=== PATIENT | female | born 2000 | race Caucasian/White ===

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

== ENCOUNTER 2021-03-04 18:55 | Inpatient (IN) | payer BC ==
[~2021-03-04] VITALS: Ht 154.9 cm; Wt 54.8 kg
[~2021-03-04 18:55] MED LIST: SULF1TAB38 PO
[2021-03-04 19:54] LABS: BILIRUBIN,URINE NEGATIVE (NEGATIVE); CLARITY,URINE SL CLOUDY; COLOR,URINE YELLOW; GLUCOSE, URINE (UA) NEGATIVE (NEGATIVE); KETONES,URINE 2+ (NEGATIVE); LEUKOCYTE ESTERASE ,URINE 2+ (NEGATIVE); NITRITE,URINE NEGATIVE (NEGATIVE); PROTEIN,URINE TRACE (NEGATIVE)
[2021-03-04 19:57] LABS: BASOPHILS % (AUTO) 0 % (0-10); EOSINOPHILS # (AUTO) 0.1 10^3/uL (0.0-0.3); EOSINOPHILS % (AUTO) 1 % (0-10); HEMATOCRIT 47 % (35-52); HEMOGLOBIN 16.3 g/dL (11.5-16.0); LYMPHOCYTES # (AUTO) 1.8 10^3/uL (1.0-4.0); LYMPHOCYTES % (AUTO) 14 % (12-44); MEAN CORPUSCULAR HEMOGLOBIN 30 pg (25-34); MEAN CORPUSCULAR HGB CONC 34 g/dL (32-36); MEAN CORPUSCULAR VOLUME 87 fL (80-99); MEAN PLATELET VOLUME 9.4 fL (9.0-12.2); MONOCYTES # (AUTO) 0.7 10^3/uL (0.0-1.0); MONOCYTES % (AUTO) 6 % (0-12); NEUTROPHILS # (AUTO) 10.4 10^3/uL (1.8-7.8); NEUTROPHILS % (AUTO) 79 % (42-75); PLATELET COUNT 329 10^3/uL (130-400); WHITE BLOOD COUNT 13.2 10^3/uL (4.3-11.0)
[2021-03-04 20:05] LABS: WBC,URINE 50-100 /HPF
[2021-03-04 20:06] LABS: AMPHETAMINE SCREEN, URINE NEGATIVE (NEGATIVE); BACTERIA,URINE FEW /HPF; BARBITURATE SCREEN URINE NEGATIVE (NEGATIVE); BENZODIAZEPINES SCREEN URINE POSITIVE (NEGATIVE); CANNABINOID SCREEN, URINE NEGATIVE (NEGATIVE); COCAINE SCREEN URINE NEGATIVE (NEGATIVE); METHADONE STAT NEGATIVE (NEGATIVE); METHAMPHETAMINE SCREEN URINE S NEGATIVE (NEGATIVE); OPIATE SCREEN URINE NEGATIVE (NEGATIVE); OXYCODONE STAT NEGATIVE (NEGATIVE); PROPOXYPHENE STAT NEGATIVE (NEGATIVE); RENAL EPITHELIAL CELLS,URINE 0-2 /HPF; SQUAMOUS EPITHELIAL CELL,UR 0-2 /HPF; TRICYCLIC ANTIDEPRESSANTS SCRE NEGATIVE (NEGATIVE)
[2021-03-04 20:09] LABS: ALBUMIN 4.7 GM/DL (3.2-4.5); CHLORIDE 104 MMOL/L (98-107); POTASSIUM 3.2 MMOL/L (3.6-5.0); SODIUM 138 MMOL/L (135-145)
[2021-03-04 20:11] LABS: CALCIUM 9.4 MG/DL (8.5-10.1)
[2021-03-04 20:12] LABS: GLUCOSE 129 MG/DL (70-105); TOTAL PROTEIN 7.2 GM/DL (6.4-8.2)
[2021-03-04 20:13] LABS: CARBON DIOXIDE 22 MMOL/L (21-32)
[2021-03-04 20:14] LABS: BILIRUBIN,TOTAL 0.7 MG/DL (0.1-1.0)
[2021-03-04 20:16] LABS: ALKALINE PHOSPHATASE 93 U/L (40-136); CREATININE SERUM 0.75 MG/DL (0.60-1.30); GFR ESTIMATED 99
[2021-03-04 20:17] LABS: BUN/CREATININE RATIO 15
[2021-03-04 20:18] LABS: SALICYLATE < 5.0 MG/DL (5.0-20.0)
[2021-03-04 20:19] LABS: ALANINE AMINOTRANSFERASE 13 U/L (0-55)
[2021-03-04 20:25] LABS: ACETAMINOPHEN 60 UG/ML (10-30)
[2021-03-04] MEDS ORDERED: D5W IV ONE ×3 (20:30→23:30)
[2021-03-04] MEDS ORDERED: KCL 10 MEQ TAB (MICRO K) PO ONE (20:30)
[2021-03-04] MEDS ORDERED: NITROFURANTOIN 100 MG (MACROBID) CAPSULE PO ONE (20:30)
[2021-03-04] MEDS ORDERED: ACETYLCYSTEINE IV ONE ×3 (20:30→23:30)
[2021-03-04] MEDS ORDERED: ACETYLCYSTEINE (ACETADOTE) IV 6000 MG/30 ML VIAL ONE ×3 (20:40→23:49)
[2021-03-04] MEDS ORDERED: ONDANSETRON 4 MG/2 ML (SDV) Z0FRAN IVP ONE ×2 (21:30→22:00)
[2021-03-04 22:10] VITALS: BP 124/68
[2021-03-04] MEDS ORDERED: D5 1/2 NS W/KCL 20 MEQ/L 1,000 ML IV SCH (22:30)
[2021-03-04] MEDS ORDERED: ONDANSETRON 4 MG/2 ML (SDV) Z0FRAN IV PRN (22:30)
[2021-03-04] MEDS ORDERED: D5W 500 ML IV SOLUTION 500 ML IV ONE (23:49)
[2021-03-05] MEDS ORDERED: KCL 20 MEQ TAB (K-DUR) PO ONE (00:30)
[2021-03-05] MEDS: D5 1/2 NS 1000 ML IV SOLUTION 1,000 ML IV SCH ×4 (00:39→22:00)
[2021-03-05] MEDS ORDERED: D5W IV ONE ×2 (03:00→03:30)
[2021-03-05] MEDS ORDERED: ACETYLCYSTEINE IV ONE ×2 (03:00→03:30)
[2021-03-05 04:06] LABS: BASOPHILS % (AUTO) 0 % (0-10); EOSINOPHILS # (AUTO) 0.1 10^3/uL (0.0-0.3); EOSINOPHILS % (AUTO) 1 % (0-10); HEMATOCRIT 42 % (35-52); HEMOGLOBIN 14.7 g/dL (11.5-16.0); LYMPHOCYTES # (AUTO) 2.3 10^3/uL (1.0-4.0); LYMPHOCYTES % (AUTO) 22 % (12-44); MEAN CORPUSCULAR HEMOGLOBIN 31 pg (25-34); MEAN CORPUSCULAR HGB CONC 35 g/dL (32-36); MEAN CORPUSCULAR VOLUME 88 fL (80-99); MEAN PLATELET VOLUME 9.4 fL (9.0-12.2); MONOCYTES # (AUTO) 0.8 10^3/uL (0.0-1.0); MONOCYTES % (AUTO) 8 % (0-12); NEUTROPHILS # (AUTO) 7.3 10^3/uL (1.8-7.8); NEUTROPHILS % (AUTO) 69 % (42-75); PLATELET COUNT 277 10^3/uL (130-400); WHITE BLOOD COUNT 10.5 10^3/uL (4.3-11.0)
[2021-03-05 04:19] LABS: CHLORIDE 104 MMOL/L (98-107); SODIUM 137 MMOL/L (135-145)
[2021-03-05 04:21] LABS: AMMONIA 34 UMOL/L (11-32); CALCIUM 8.4 MG/DL (8.5-10.1)
[2021-03-05 04:22] LABS: GLUCOSE 151 MG/DL (70-105)
[2021-03-05 04:23] LABS: CARBON DIOXIDE 23 MMOL/L (21-32)
[2021-03-05 04:24] LABS: BILIRUBIN,TOTAL 0.6 MG/DL (0.1-1.0)
[2021-03-05 04:25] LABS: ALKALINE PHOSPHATASE 71 U/L (40-136); PHOSPHORUS 3.6 MG/DL (2.3-4.7)
[2021-03-05 04:26] LABS: CREATININE SERUM 0.69 MG/DL (0.60-1.30); GFR ESTIMATED 108
[2021-03-05 04:27] LABS: ACETAMINOPHEN < 10 UG/ML (10-30); BUN/CREATININE RATIO 10
[2021-03-05 04:29] LABS: ALANINE AMINOTRANSFERASE 11 U/L (0-55)
[2021-03-05 05:10] LABS: INR 1.1 (0.8-1.4); PROTHROMBIN TIME PATIENT 14.8 SEC (12.2-14.7)
--- NOTE | 2021-03-05 05:13 | ED Psychosocial ---
General Chief Complaint: Overdose Stated Complaint: INTENTIONAL DRUG OD,SUICIDE ATTEMPT,ACETOMENOPHEN Source: patient (GIVES VERY MINIMAL INFORMATION, AND ANSWERS "I DON'T KNOW" TO NEARLY ALL QUESTIONS), mother (GIVES SOME INFORMATION, BUT IS LIMITED HISTORIAN ABOUT EVENTS OF TODAY) History of Present Illness Date Seen by Provider: Mar 04, 2021 Time Seen by Provider: 19:30 Initial Comments PT ARRIVES VIA POV FROM HOME WITH MOTHER PT TOOK AN UNKNOWN AMOUNT OF TYLENOL SOMETIME TODAY INITIALLY WOULD ONLY SAY "I DON'T KNOW" TO WHAT SHE TOOK, HOW MANY SHE TOOK AND WHEN SHE TOOK THEM LATER, STATES SHE TOOK "6 OR 7" TYLENOL AT 1700 TODAY WHEN ASKED WHY SHE TOOK THEM, SHE STATES "I DON'T KNOW" WHEN ASKED IF SHE WANTED TO OR TO HARM HERSELF, SHE STATES "I DON'T KNOW" WHEN ASKED HOW LONG SHE HAS BEEN FEELING THIS WAY, SHE STATES "I DON'T KNOW" MOM STATES THAT SHE WAS PLANNING ON GOING TO [facility] IN [place] TODAY, BUT WHEN SHE WENT TO PICK PT UP, PT TOLD HER SHE HAD TAKEN PILLS, AND THAT SHE WAS TRYING TO HARM HERSELF, SO BROUGHT PT HERE INSTEAD PT IS ON FLUOXETINE, AND THIS DOSE WAS INCREASED LAST WEEK PT ALSO TAKES CONCERTA FOR ADHD PT HAS ATTEMPTED TO HARM HERSELF IN THE PAST, AND WAS ADMITTED TO [facility] AT AGE 16 DUE TO INTENTIONAL OVERDOSE. PT STATES SOMETIMES SHE CUTS HERSELF ON ARMS OR LEGS, BUT NOT RECENTLY PT IS BIOLOGICAL FEMALE, TAKING WEEKLY TESTOSTERONE INJECTIONS LMP--A FEW MONTHS AGO. NO CONTROL. PCP: DR. BISWAS Allergies and Home Medications Allergies Coded Allergies: No Known Drug Allergies (Unverified , 09/13/16) Patient Home Medication List Home Medication List Reviewed: Yes Sulfamethoxazole/Trimethoprim (Bactrim Ds Tablet) 1 Each Tablet, 1 EACH PO BID Prescribed by: MARGE ZAVALA on 09/13/16 1341 Review of Systems Constitutional: no symptoms reported EENTM: no symptoms reported Respiratory: no symptoms reported Cardiovascular: no symptoms reported Gastrointestinal: no symptoms reported Genitourinary: no symptoms reported Control/STD Prophylaxis: None Musculoskeletal: no symptoms reported Skin: no symptoms reported Psychiatric/Neurological: See HPI Past Teunbzn-Psvjoo-Mnnsjz Hx Patient Social History Tobacco Use?: No Use of E-Cig and/or Vaping dev: No Substance use?: Yes Substance type: Methamphetamine Substance frequency: Rarely Alcohol Use?: No Pt feels they are or have been: No Immunizations Up To Date Influenza Vaccine Up-to-Date: No; Not Current First/Initial COVID19 Vaccinat: Moderna 08/24 Second COVID19 Vaccination Lonnie: 08/24 Past Medical History Surgeries: No Respiratory: No Cardiac: No Neurological: No : No Genitourinary: No Gastrointestinal: No Musculoskeletal: No Endocrine: No HEENT: No Cancer: No Psychosocial: Yes ADD/ADHD, Anxiety, Suicide Attempts, Depression Physical Exam Vital Signs - First Documented 03/04/21 22:30 Temp 37.8 Pulse 91 Resp 18 B/P (MAP) 107/63 Pulse Ox 98 O2 Delivery Room Air Capillary Refill : Less Than 3 Seconds Height, Weight, BMI Height: 5'0" Weight: 100lbs. oz. 45.524131xo; 23.08 BMI Method:Stated General Appearance: WD/WN, no apparent distress, other (VERY FLAT AFFECT, AND GIVES MINIMAL ANSWERS TO QUESTIONS) HEENT: PERRL/EOMI Neck: normal inspection Respiratory: normal breath sounds, no respiratory distress, no accessory muscle use Cardiovascular: regular rate, rhythm, no murmur Gastrointestinal: non tender, soft Extremities: non-tender, normal inspection, normal capillary refill, other (NO EXTERNAL EVIDENCE OF TRAUMA NOTED ANYWHERE) Neurologic/Psychiatric: group chief operator II-XII nml as tested, no motor/sensory deficits, alert, oriented x 3 Appearance/Memory: appropriate appearance, impaired insight Behavior/Eye Contact: cooperative, normal speech, avoids eye contact Thoughts/Hallucinations: no apparent hallucination Skin: normal color, warm/dry Progress/Results/Core Measures Results/Orders Lab Results Laboratory Tests Test 03/04/21 19:35 03/04/21 19:48 03/04/21 20:07 03/05/21 00:16 Range/Units Urine Color YELLOW Urine Clarity SL CLOUDY Urine pH 7.0 5-9 Urine Specific [place] 1.015 L 1.016-1.022 Urine Protein TRACE H NEGATIVE Urine Glucose (UA) NEGATIVE NEGATIVE Urine Ketones 2+ H NEGATIVE Urine Nitrite NEGATIVE NEGATIVE Urine Bilirubin NEGATIVE NEGATIVE Urine Urobilinogen 0.2 < = 1.0 MG/DL Urine Leukocyte Esterase 2+ H NEGATIVE Urine RBC (Auto) NEGATIVE NEGATIVE Urine RBC NONE /HPF Urine WBC 50-100 H /HPF Urine Squamous Epithelial Cells 0-2 /HPF Urine Renal Epithelial Cells 0-2 /HPF Urine Crystals NONE /LPF Urine Bacteria FEW H /HPF Urine Casts NONE /LPF Urine Mucus NEGATIVE /LPF Urine Culture Indicated YES Urine Opiates Screen NEGATIVE NEGATIVE Urine Oxycodone Screen NEGATIVE NEGATIVE Urine Methadone Screen NEGATIVE NEGATIVE Urine Propoxyphene Screen NEGATIVE NEGATIVE Urine Barbiturates Screen NEGATIVE NEGATIVE Ur Tricyclic Antidepressants Screen NEGATIVE NEGATIVE Urine Phencyclidine Screen NEGATIVE NEGATIVE Urine Amphetamines Screen NEGATIVE NEGATIVE Urine Methamphetamines Screen NEGATIVE NEGATIVE Urine Benzodiazepines Screen POSITIVE H NEGATIVE Urine Cocaine Screen NEGATIVE NEGATIVE Urine Cannabinoids Screen NEGATIVE NEGATIVE White Blood Count 13.2 H 4.3-11.0 10^3/uL Red Blood Count 5.43 H 3.80-5.11 10^6/uL Hemoglobin 16.3 H 11.5-16.0 g/dL Hematocrit 47 35-52 % Mean Corpuscular Volume 87 80-99 fL Mean Corpuscular Hemoglobin 30 25-34 pg Mean Corpuscular Hemoglobin Concent 34 32-36 g/dL Red Cell Distribution Width 12.2 10.0-14.5 % Platelet Count 329 130-400 10^3/uL Mean Platelet Volume 9.4 9.0-12.2 fL Immature Granulocyte % (Auto) 0 % Neutrophils (%) (Auto) 79 H 42-75 % Lymphocytes (%) (Auto) 14 12-44 % Monocytes (%) (Auto) 6 0-12 % Eosinophils (%) (Auto) 1 0-10 % Basophils (%) (Auto) 0 0-10 % Neutrophils # (Auto) 10.4 H 1.8-7.8 10^3/uL Lymphocytes # (Auto) 1.8 1.0-4.0 10^3/uL Monocytes # (Auto) 0.7 0.0-1.0 10^3/uL Eosinophils # (Auto) 0.1 0.0-0.3 10^3/uL Basophils # (Auto) 0.0 0.0-0.1 10^3/uL Immature Granulocyte # (Auto) 0.0 0.0-0.1 10^3/uL Sodium Level 138 135-145 MMOL/L Potassium Level 3.2 L 3.6-5.0 MMOL/L Chloride Level 104 98-107 MMOL/L Carbon Dioxide Level 22 21-32 MMOL/L Anion Gap 12 5-14 MMOL/L Blood Urea Nitrogen 11 7-18 MG/DL Creatinine 0.75 0.60-1.30 MG/DL Estimat Glomerular Filtration Rate 99 BUN/Creatinine Ratio 15 Glucose Level 129 H 70-105 MG/DL Calcium Level 9.4 8.5-10.1 MG/DL Corrected Calcium 8.5-10.1 MG/DL Total Bilirubin 0.7 0.1-1.0 MG/DL Aspartate Amino Transf (AST/SGOT) 17 5-34 U/L Alanine Aminotransferase (ALT/SGPT) 13 0-55 U/L Alkaline Phosphatase 93 40-136 U/L Total Protein 7.2 6.4-8.2 GM/DL Albumin 4.7 H 3.2-4.5 GM/DL TSH [place]ove Testing 0.50 0.35-4.94 UIU/ML Serum Test, Qualitative NEGATIVE NEGATIVE Salicylates Level < 5.0 L 5.0-20.0 MG/DL Acetaminophen Level 60 *H 21 10-30 UG/ML Serum Alcohol < 10 <10 MG/DL SARS-CoV-2 RNA (RT-PCR) Not Detected Not Detecte Test 03/05/21 03:57 Range/Units White Blood Count 10.5 4.3-11.0 10^3/uL Red Blood Count 4.80 3.80-5.11 10^6/uL Hemoglobin 14.7 11.5-16.0 g/dL Hematocrit 42 35-52 % Mean Corpuscular Volume 88 80-99 fL Mean Corpuscular Hemoglobin 31 25-34 pg Mean Corpuscular Hemoglobin Concent 35 32-36 g/dL Red Cell Distribution Width 12.2 10.0-14.5 % Platelet Count 277 130-400 10^3/uL Mean Platelet Volume 9.4 9.0-12.2 fL Immature Granulocyte % (Auto) 0 % Neutrophils (%) (Auto) 69 42-75 % Lymphocytes (%) (Auto) 22 12-44 % Monocytes (%) (Auto) 8 0-12 % Eosinophils (%) (Auto) 1 0-10 % Basophils (%) (Auto) 0 0-10 % Neutrophils # (Auto) 7.3 1.8-7.8 10^3/uL Lymphocytes # (Auto) 2.3 1.0-4.0 10^3/uL Monocytes # (Auto) 0.8 0.0-1.0 10^3/uL Eosinophils # (Auto) 0.1 0.0-0.3 10^3/uL Basophils # (Auto) 0.0 0.0-0.1 10^3/uL Immature Granulocyte # (Auto) 0.0 0.0-0.1 10^3/uL Sodium Level 137 135-145 MMOL/L Potassium Level 4.0 3.6-5.0 MMOL/L Chloride Level 104 98-107 MMOL/L Carbon Dioxide Level 23 21-32 MMOL/L Anion Gap 10 5-14 MMOL/L Blood Urea Nitrogen 7 7-18 MG/DL Creatinine 0.69 0.60-1.30 MG/DL Estimat Glomerular Filtration Rate 108 BUN/Creatinine Ratio 10 Glucose Level 151 H 70-105 MG/DL Calcium Level 8.4 L 8.5-10.1 MG/DL Corrected Calcium 8.4 L 8.5-10.1 MG/DL Phosphorus Level 3.6 2.3-4.7 MG/DL Magnesium Level 2.0 1.6-2.4 MG/DL Total Bilirubin 0.6 0.1-1.0 MG/DL Aspartate Amino Transf (AST/SGOT) 12 5-34 U/L Alanine Aminotransferase (ALT/SGPT) 11 0-55 U/L Alkaline Phosphatase 71 40-136 U/L Ammonia 34 H 11-32 UMOL/L Total Protein 6.0 L 6.4-8.2 GM/DL Albumin 4.0 3.2-4.5 GM/DL Acetaminophen Level < 10 L 10-30 UG/ML My Orders Orders - CELIA PENNINGTON DO Urinalysis (03/04/21 19:29) Thyroid Analyzer (03/04/21 19:29) Drug Screen Stat (Urine) (03/04/21 19:29) Cbc With Automated Diff (03/04/21 19:29) Comprehensive Metabolic Panel (03/04/21 19:29) Alcohol (03/04/21 19:29) Acetaminophen (03/04/21 19:29) Salicylate (03/04/21 19:29) Ekg Tracing (03/04/21 19:29) Monitor-Rhythm Ecg Trace Only (03/04/21 19:29) Hcg,Qualitative Serum (10/30/21 19:29) Covid 19 Inhouse Test (03/04/21 19:29) Urine Culture (03/04/21 19:35) Potassium Chloride (Tablet) (Klor Con Ta (03/04/21 20:30) Nitrofurantoin Capsule,Macro (Macrobid C (03/04/21 20:30) Acetylcysteine Injection (Acetadote Inje (03/04/21 20:30) Acetylcysteine Injection (Acetadote Inje (03/04/21 20:40) Ondansetron Injection (Zofran Injectio (03/04/21 21:30) Ondansetron Injection (Zofran Injectio (03/04/21 22:00) Medications Given in ED Current Medications Medications Dose Ordered Sig/Tavon Route Start Time Stop Time Status Last Admin Dose Admin Acetylcysteine 8900 mg/Dextrose/ Water 294.5 ml @ 294.5 mls/ hr ONCE ONCE IV 03/04/21 20:30 03/04/21 21:29 DC 03/04/21 20:49 294.5 MLS/HR Nitrofurantoin Macrocrystals 100 mg ONCE ONCE PO 03/04/21 20:30 03/04/21 20:31 DC 03/04/21 20:28 100 MG Potassium Chloride 20 meq ONCE ONCE PO 03/04/21 20:30 03/04/21 20:31 DC 03/04/21 20:28 20 MEQ Vital Signs/I&O 03/04/21 03/04/21 03/04/21 03/04/21 22:30 22:30 22:30 23:00 Temp 37.8 Pulse 91 98 Resp 18 19 B/P (MAP) 107/63 117/65 Pulse Ox 98 98 93 O2 Delivery Room Air Room Air Room Air 03/05/21 03/05/21 03/05/21 03/05/21 00:00 01:00 01:00 02:00 Pulse 109 89 86 89 Resp 19 19 17 B/P (MAP) 115/63 107/56 117/66 Pulse Ox 98 97 96 O2 Delivery Room Air Room Air Room Air 03/05/21 03/05/21 04:00 04:00 Temp 37.1 Pulse Ox 96 O2 Delivery Room Air Blood Pressure Mean: 83 Progress Progress Note : Progress Note ACETADOTE STARTED IN ER NO DETERIORATION IN PT'S CONDITION DURING ER STAY Initial ECG Impression Date: Mar 04, 2021 Initial ECG Impression Time: 19:41 Initial ECG Rate: 94 Initial ECG Rhythm: Normal Sinus Departure Communication (Admissions) 2029--SPOKE WITH DR. GOODWIN, FASHION SHOW DIRECTOR FOR DR. BISWAS. ACCEPTS PT FOR ADMIT. ORDERS NOTED --WILL START ACETADOTE 2032--REPORT TO E-ICU PHYSICIAN. ALSO AGREES WITH ACETADOTE. Impression Primary Impression: INTENTIONAL DRUG OVERDOSE Additional Impressions: SUICIDE ATTEMPT Acetaminophen toxicity UTI (urinary tract infection) Disposition: ADMITTED INPATIENT Condition: Stable Admissions Decision to Admit Reason: Admit from ER (General) Decision to Admit/Date: Mar 04, 2021 Time/Decision to Admit Time: 20:30 Departure-Patient Inst. Referrals: MONSERRAT BISWAS DO (PCP) Primary Care Physician Patient Instructions: ALCOHOL AND SUBSTANCE ABUSE CELIA PENNINGTON DO Mar 05, 2021 05:13
[2021-03-05] MEDS ORDERED: KCL 20 MEQ TAB (K-DUR) PO SCH (06:00)
[2021-03-05] MEDS ORDERED: MAGNESIUM 1 GM/100 ML IVPB 100 ML IV SCH (06:00)
[2021-03-05] MEDS ORDERED: POTASSIUM CL 10MEQ/50ML IVPB 50 ML IV SCH (06:00)
[2021-03-05] MEDS ORDERED: FLU QUADRIvalent (3YOA+) 60 mcg/0.5 ml 2021-22(AFLURIA) IM ONE (07:15)
[2021-03-05] MEDS: NITROFURANTOIN 100 MG (MACROBID) CAPSULE PO SCH ×2 (08:40→20:53)
--- NOTE | 2021-03-05 09:20 | History & Physical ---
History of Present Illness History of Present Illness Reason for visit/HPI PT IS A 20 Y/O BIOLOGICAL FEMALE WHO IDENTIFIES A MALE. THIS PATIENT IS A CLINIC PATIENT OF DR. BISWAS FOR WHOM I AM FLOW NURSE TODAY. THE PATIENT WAS BROUGHT TO THE EMERGENCY DEPARTMENT AFTER A PURPOSEFUL OVERDOSE OF ACETAMINOPHEN. THE PATIENT REPORTED TO THE STAFF THAT ONLY 6 OR 7 TYLENOL PILLS WERE INGESTED, HOWEVER THE PATIENT HAD A HIGH ACETAMINOPHEN LEVEL ON LABS DRAWN IN ER. DUE TO THE NATURE OF SELF-INJURY - PT WAS ADMITTED TO THE ICU FOR CLOSE MONITORING. Date of Admission Mar 04, 2021 at 20:30 Date Seen by a Provider: Mar 05, 2021 Time Seen by a Provider: 09:00 Attending Physician MONSERRAT BISWAS DO Admitting Physician GILL GOODWIN MD Consult EICU/CRITICAL CARE Allergies and Home Medications Allergies Coded Allergies: No Known Drug Allergies (Unverified , 09/13/16) Patient Home Medication List Home Medication List Reviewed: No Sulfamethoxazole/Trimethoprim (Bactrim Ds Tablet) 1 Each Tablet, 1 EACH PO BID Prescribed by: MARGE ZAVALA on 09/13/16 1341 Past Nskgjaw-Rdscdf-Azbnno Hx Patient Social History Marrital Status: single Number of Children: 0 Number of living children: 0 Employed/Student: part-time employed, student, full-time Tobacco Use?: No Smoking Status: Never a Smoker Use of E-Cig and/or Vaping dev: No Substance use?: Yes Substance type: Methamphetamine Substance frequency: Rarely Alcohol Use?: No Pt feels they are or have been: No Immunizations Up To Date First/Initial COVID19 Vaccinat: Moderna 08/24 Second COVID19 Vaccination Lonnie: Moderna 08/24 Current Status status: No Advance Directives: No Communicates: Verbally Primary Language: Bengali Sensory deficits: Vision impairment Implanted or Applied Medical D: None Past Medical History Currently Using CPAP: No Currently Using BIPAP: No Sexually Transmitted Disease: No HIV/AIDS: No Loss of Vision: Denies Hearing Impairment: Denies ADD/ADHD, Anxiety, Suicide Attempts, Depression Blood Disorders: No Adverse Reaction/Blood Tranf: No PAST HISTORY OF SUICIDAL IDEATION AND ATTEMPTS, HX OF DEPRESSION, ANXIETY Family Medical History Reviewed and Corrections made Other Conditions/Hx (HX OF DEPRESSION) Review of Systems Constitutional: No chills, No fever, No malaise EENTM: No hoarseness, No throat pain Respiratory: No cough, No dyspnea on exertion, No short of breath Cardiovascular: No chest pain, No edema, No palpitations Gastrointestinal: No abdominal pain, No constipation, No diarrhea, No nausea, No vomiting Genitourinary: no symptoms reported; No frequency, No hematuria Musculoskeletal: no symptoms reported; No back pain, No muscle weakness Skin: no symptoms reported Psychiatric/Neurological: Anxiety, Depressed, Emotional Problems, Other (SUICIDAL IDEATION) All Other Systems Reviewed Negative Unless Noted: Yes Physical Exam Vital Signs Vital Signs - First Documented 03/04/21 22:10 Temp 36.8 Pulse 99 Resp 16 B/P (MAP) 124/68 Pulse Ox 99 O2 Delivery Room Air Capillary Refill : Less Than 3 Seconds Height, Weight, BMI Height: 5'0" Weight: 100lbs. oz. 45.794747li; 23.08 BMI Method:Stated General Appearance: No Apparent Distress, WD/WN Assessment/Plan Assessment and Plan SUICIDE ATTEMPT OVERDOSE OF TYLENOL (UNKNOWN QUANTITY) CHRONIC DEPRESSION CHRONIC ANXIETY HISTORY OF PREVIOUS SUICIDE ATTEMPTS GENDER DYSPHORIA DISORDER TRANSGENDER/TRANSSEXUAL IN PROCESS OF TRANSITION FROM FEMALE TO MALE HORMONE SUPPRESSIVE THERAPY TESTOSTERONE THERAPY Admission Diagnosis SUICIDE ATTEMPT OVERDOSE OF TYLENOL (UNKNOWN QUANTITY) CHRONIC DEPRESSION CHRONIC ANXIETY HISTORY OF PREVIOUS SUICIDE ATTEMPTS GENDER DYSPHORIA DISORDER TRANSGENDER/TRANSSEXUAL IN PROCESS OF TRANSITION FROM FEMALE TO MALE HORMONE SUPPRESSIVE THERAPY TESTOSTERONE THERAPY SUICIDE ATTEMPT WITH OVERDOSE OF TYLENOL (UNKNOWN QUANTITY) - CHRONIC DEPRESSION - CHRONIC ANXIETY - HISTORY OF PREVIOUS SUICIDE ATTEMPTS DISCUSSED WITH PT AND AVAILABLE PARENT (MOM) IN THE ROOM AT LENGTH - THE PATIENT REPORTS THAT THE DEPRESSION IS PERSISTENT AND RECURRENT SELF-HARM IS A POSSIBILITY, "I DON'T KNOW HOW I WILL FEEL IN 5 MINUTES, SO I CAN'T SAY THAT I WON'T" - WHEN ASKED IF THERE WERE ANY CONTINUED THOUGHTS ABOUT SELF-HARM OR SUCH SEVERE DEPRESSION THAT SELF HARM MAY OCCUR. - THE PT ALSO REPORTED THAT GOING INTO A PSYCHIATRIC UNIT WOULD BE GOOD BECAUSE THE LAST TIME THAT THIS HAPPENED AND THE DISCHARGE PLAN WAS STRAIGHT HOME, "NOTHING GOT BETTER". - RESUME FLUOXETINE - TYLENOL LEVEL DOWN TO NORMAL AFTER TREATMENT WITH ACETADOTE. - MONITOR LABS IN MORNING, SUPPORTIVE CARE AT THIS TIME. - WAITING ON [facility] TO EVALUATE PATIENT AND ASSIST WITH TRANSITION OF PT TO IN PSYCHIATRIC FACILITY GENDER DYSPHORIA DISORDER - TRANSGENDER/TRANSSEXUAL IN PROCESS OF TRANSITION FROM FEMALE TO MALE ON HORMONE SUPPRESSIVE THERAPY - TESTOSTERONE THERAPY - WILL DEFER TO SPECIALIST MANAGING THIS HORMONE THERAPY/TRANSITION PROCESS. Admission Status: Inpatient Order (span 2 midnights) Reason for Inpatient Admission: INPT ADMISSION FOR SUICIDE ATTEMPT WITH TYLENOL, WILL REQUIRE AT LEAST 48 HOURS FOR STABILIZATION AND PLAN FOR TRANSITION TO INPATIENT PSYCHIATRIC FACILITY GILL GOODWIN MD Mar 05, 2021 09:20
[2021-03-05] MEDS ORDERED: FLUO20CA46 PO (20:22)
[2021-03-05] MEDS ORDERED: FLUoxetine HCL 10 MG (PROzac) CAPSULE/TABLET PO SCH (21:00)
[2021-03-06] MEDS: D5 1/2 NS 1000 ML IV SOLUTION 1,000 ML IV SCH ×2 (04:39→11:28)
[2021-03-06 05:39] LABS: BASOPHILS % (AUTO) 1 % (0-10); EOSINOPHILS # (AUTO) 0.3 10^3/uL (0.0-0.3); EOSINOPHILS % (AUTO) 5 % (0-10); HEMATOCRIT 40 % (35-52); HEMOGLOBIN 13.6 g/dL (11.5-16.0); LYMPHOCYTES # (AUTO) 3.1 10^3/uL (1.0-4.0); LYMPHOCYTES % (AUTO) 44 % (12-44); MEAN CORPUSCULAR HEMOGLOBIN 31 pg (25-34); MEAN CORPUSCULAR HGB CONC 34 g/dL (32-36); MEAN CORPUSCULAR VOLUME 90 fL (80-99); MEAN PLATELET VOLUME 9.5 fL (9.0-12.2); MONOCYTES # (AUTO) 0.6 10^3/uL (0.0-1.0); MONOCYTES % (AUTO) 9 % (0-12); NEUTROPHILS # (AUTO) 2.9 10^3/uL (1.8-7.8); NEUTROPHILS % (AUTO) 42 % (42-75); PLATELET COUNT 257 10^3/uL (130-400)
[2021-03-06 05:48] LABS: ALBUMIN 3.7 GM/DL (3.2-4.5)
[2021-03-06 05:49] LABS: CALCIUM 8.1 MG/DL (8.5-10.1)
[2021-03-06 05:50] LABS: TOTAL PROTEIN 5.6 GM/DL (6.4-8.2)
[2021-03-06 05:52] LABS: BILIRUBIN,TOTAL 0.2 MG/DL (0.1-1.0)
[2021-03-06 05:54] LABS: CREATININE SERUM 0.62 MG/DL (0.60-1.30)
[2021-03-06] MEDS: NITROFURANTOIN 100 MG (MACROBID) CAPSULE PO SCH (08:26)
[2021-03-06] MEDS ORDERED: CHOL200074 PO (09:57)
[2021-03-06] MEDS ORDERED: TEST200V21 IM (09:57)
[2021-03-06] MEDS ORDERED: METH18TA4 PO (09:57)
[2021-03-06] MEDS ORDERED: FLUO10CA31 PO (09:57)
[2021-03-06] MEDS ORDERED: TESTOSTERONE CYPIONATE IM SCH (17:00)
[2021-03-06] MEDS ORDERED: PATIENT MAY USE OWN MED,SINGLE MED PO SCH (17:00)
--- NOTE | 2021-03-06 17:35 | Progress Note ---
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 Denies pain or nausea. Admits is still depressed and this was a suicide attempt but denies current suicidal ideation. States has not been seeing her therapist routinely. Cannot give me the name of the doctor that prescribed testosterone--states it was someone in [place]. Objective Exam Vital Signs Date Time Temp Pulse Resp B/P (MAP) Pulse Ox O2 Delivery O2 Flow Rate FiO2 03/06/21 15:30 90 18 106/55 98 Room Air 03/06/21 12:00 35.7 85 18 106/57 97 Room Air 03/06/21 09:00 Room Air 03/06/21 08:00 36.5 91 16 99/63 95 Room Air 03/06/21 04:00 36.1 94 18 100/63 96 Room Air 03/05/21 23:50 37.0 82 18 95/56 95 Room Air 03/05/21 21:00 Room Air 03/05/21 19:45 37.0 91 18 96/60 96 Room Air I & O 03/06/21 07:00 Intake Total 1950 ml Output Total 300 ml Balance 1650 ml Capillary Refill : Less Than 3 Seconds General Appearance: No Apparent Distress Respiratory: Lungs Clear Cardiovascular: Regular Rate, Rhythm Gastrointestinal: normal bowel sounds, non tender, soft Extremity: Non Tender, No Calf Tenderness, No Pedal Edema Neurologic/Psychiatric: Alert, Oriented x3 Results Lab Laboratory Tests 03/06/21 05:29: White Blood Count 7.0, Red Blood Count 4.46, Hemoglobin 13.6, Hematocrit 40, Mean Corpuscular Volume 90, Mean Corpuscular Hemoglobin 31, Mean Corpuscular Hemoglobin Concent 34, Red Cell Distribution Width 12.7, Platelet Count 257, Mean Platelet Volume 9.5, Immature Granulocyte % (Auto) 0, Neutrophils (%) (Au to) 42, Lymphocytes (%) (Auto) 44, Monocytes (%) (Auto) 9, Eosinophils (%) (Auto) 5, Basophils (%) (Auto) 1, Neutrophils # (Auto) 2.9, Lymphocytes # (Auto) 3.1, Monocytes # (Auto) 0.6, Eosinophils # (Auto) 0.3, Basophils # (Auto) 0.0, Immature Granulocyte # (Auto) 0.0, Sodium Level 140, Potassium Level 4.0, Chloride Level 109H, Carbon Dioxide Level 22, Anion Gap 9, Blood Urea Nitrogen 4L, Creatinine 0.62, Estimat Glomerular Filtration Rate 123, BUN/Creatinine Ratio 6, Glucose Level 112H, Calcium Level 8.1L, Corrected Calcium 8.3L, Total Bilirubin 0.2, Aspartate Amino Transf (AST/SGOT) 14, Alanine Aminotransferase (ALT/SGPT) 10, Alkaline Phosphatase 78, Total Protein 5.6L, Albumin 3.7 Microbiology 03/04/21 MRSA Screen - Final, Complete MRSA not isolated 03/04/21 Urine Culture - Final, Complete See Comments Assessment/Plan Assessment/Plan Assess & Plan/Chief Complaint 1. Suicide Attempt with Tylenol Overdose--medically cleared for psych evaluation 2. Recurrent Major Depressive Disorder with Suicidal Ideation--has not been following routinely with her therapist or [facility], may need inpatient treatment 3. Gender Dysphoria Disorder with Hormone Suppression--patient unsure of what doctor prescribed testosterone so will do [employer] to get the name, needs intensive therapy for this as well since she is transitioning from female to male MONSERRAT BISWAS DO Mar 06, 2021 17:35
== END 2021-03-06 19:17 | DRG 918 ==
LOC: EDUNIT# 18:55 → ER 19:00 → ICU 20:30 → 4TH 03-05 11:50
PROVIDERS: ADMIT Family Medicine; ATTEND Family Medicine
DX: T39.1X2A Poisoning by 4-Aminophenol derivatives, intentional self-harm, initial encounter (principal); N39.0 Urinary tract infection, site not specified; F90.9 Attention-deficit hyperactivity disorder, unspecified type; F41.9 Anxiety disorder, unspecified; F32.A Depression, unspecified; H54.7 Unspecified visual loss; F64.0 Transsexualism; Z79.890 Hormone replacement therapy; Z79.899 Other long term (current) drug therapy
CPT/HCPCS: 36415; 80053; 80306; 80320; 80329; 81000; 82140; 83036; 83735; 84100; 84443; 84703; 85025; 85610; 87081; 87088; 87636; 93005; 93041; 96374; 96375; 96376